=== PATIENT | female | born 1990 | race Caucasian/White ===

== ENCOUNTER 2021-09-09 19:24 | Emergency (ER) | payer MEDICAID ==
[~2021-09-09] VITALS: Ht 154.9 cm; Wt 80.9 kg
[2021-09-09 20:00] VITALS: BP 122/70
== END 2021-09-10 07:04 | disposition left against medical advice (07) ==
LOC: ER 19:24
DX: Z53.21 Procedure and treatment not carried out due to patient leaving prior to being seen by health care provider (principal)